=== PATIENT | female | born 1945 | race Caucasian/White ===

== ENCOUNTER 2021-10-18 12:24 | Emergency (ER) | payer MEDICARE ==
[~2021-10-18] VITALS: Ht 167.6 cm; Wt 79.4 kg
[2021-10-18 12:58] LABS: ABSOLUTE NEUTROPHILS 8.9 thou/uL (1.4-8.2); BASOPHILS 0.5 % (0.0-2.0); EOSINOPHILS 0.4 % (0.0-3.0); HEMATOCRIT 41.9 % (37.0-47.0); HEMOGLOBIN 13.9 gm/dL (12.0-15.0); MCH 29.4 pg (26.0-34.0); MCHC 33.1 g/dL (28.0-37.0); MCV 88.7 fL (80.0-100.0); MONOCYTES 9.4 % (1.0-8.0); PLATELET COUNT 305 thou/uL (150-400); POLYS 82.7 % (36.0-66.0); RBC 4.72 mil/uL (4.20-5.00); WBC 10.8 thou/uL (4.0-11.0)
[2021-10-18 13:14] LABS: CALCIUM 9.3 mg/dL (8.5-10.1); CREATININE 0.8 mg/dL (0.6-1.0); POTASSIUM 3.8 mmol/L (3.5-5.1)
[2021-10-18 13:20] LABS: ALBUMIN 3.8 g/dL (3.4-5.0); TOTAL BILIRUBIN 0.9 mg/dL (0.2-1.0); TOTAL PROTEIN 7.7 g/dL (6.4-8.2)
[2021-10-18 14:15] LABS: URINE BILIRUBIN NEGATIVE (Negative); URINE BLOOD TRACE (Negative); URINE CLARITY CLEAR; URINE COLOR YELLOW; URINE GLUCOSE-RANDOM* NEGATIVE (Negative); URINE KETONES NEGATIVE (Negative); URINE LEUKOCYTES-REFLEX NEGATIVE (Negative); URINE NITRITE-REFLEX NEGATIVE (Negative); URINE PROTEIN (DIPSTICK) NEGATIVE (Negative); URINE SPECIFIC GRAVITY <= 1.005 (1.005-1.035); URINE UROBILINOGEN 0.2 E.U./dl (0.2-1.0)
--- NOTE | 2021-10-18 15:40 | EKG ---
[place] [address] [address] [facility] [place] [address] ELECTROCARDIOGRAM REPORT Name: HALLNEEL ROSALES Room #: [id number] Admission: 10/18/21 Attend Phys: Discharge: Date of : 49 Report #: [id number] [facility] ED Test Date: 2021-10-18 Test Time: 12:47:38 Pat Name: NEEL GARRETT Department: Room: Gender: F Audio Visual Tech: MARYBEL : 1945 Requested By: Darien Moreira Order Number: [id number] MD: Alvin Moreno Measurements Intervals [place] Rate: 81 P: 66 DC: 154 QRS: -53 QRSD: 93 T: 43 QT: 390 QTc: 453 Interpretive Statements Sinus rhythm Probable left atrial enlargement RSR' in V1 or V2, right VCD or RVH No previous ECG available for comparison Electronically Signed On 10-18-2021 15:40:10 [employer] by Alvin Moreno [email or web address] <ELECTRONICALLY SIGNED> By: Alvin Moreno MD, [facility] 10/18/21 1540 1247 [id number] Alvin Moreno MD, FACC /EPI
[2021-10-18 16:30] VITALS: BP 152/69
== END 2021-10-18 16:30 | disposition short-term general hospital (02) ==
LOC: ER 12:24
PROVIDERS: Emergency Medicine; Student in an Organized Health Care Education/Training Program
DX: S06.5X9A Traumatic subdural hemorrhage with loss of consciousness of unspecified duration, initial encounter (principal); Z20.822 Contact with and (suspected) exposure to COVID-19; X58.XXXA Exposure to other specified factors, initial encounter; Y93.89 Activity, other specified; Y92.89 Other specified places as the place of occurrence of the external cause; Y99.8 Other external cause status